=== PATIENT | male | born 1965 | race Caucasian/White ===

== ENCOUNTER 2017-08-17 17:00 | Inpatient (IN) ==
[2017-08-17] MEDS: SODIUM CHLORIDE 0.9% 1,000 ML IV SCH (20:14)
[2017-08-17] MEDS ORDERED: LACTULOSE 20 GM/30 ML UDCUP PO PRN (20:16)
[2017-08-17] MEDS ORDERED: diphenhydrAMINE CAP 25 MG CAPSULE PO PRN (20:16)
[2017-08-17] MEDS ORDERED: guaiFENesin 200 MG/10 ML UDCUP PO PRN (20:16)
[2017-08-17] MEDS ORDERED: MAGNESIUM HYDROXIDE SUSP 30 ML UDCUP PO PRN (20:16)
[2017-08-17] MEDS ORDERED: ONDANSETRON 4 MG/2 ML VIAL IV PRN (20:16)
[2017-08-17] MEDS ORDERED: ALPRAZolam 0.25 MG TABLET PO PRN (20:16)
[2017-08-17] MEDS ORDERED: chlorproMAZINE INJ 50 MG in SODIUM CHLORIDE 0.9% 100 ML IV PRN (20:16)
[2017-08-17] MEDS ORDERED: MYLANTA/LIDO VISC 2:1 300 ML BOTTLE SWISH/SWAL PRN (20:16)
[2017-08-17] MEDS ORDERED: chlorproMAZINE 25 MG TABLET PO PRN (20:16)
[2017-08-17] MEDS ORDERED: ALUMINUM/MAGNES/SIMETH MAX STR 30 ML UDCUP PO PRN (20:16)
[2017-08-17] MEDS ORDERED: TEMAZEPAM 7.5 MG CAPSULE PO PRN (20:16)
[2017-08-17] MEDS ORDERED: chlorproMAZINE INJ 25 MG in SODIUM CHLORIDE 0.9% 100 ML IV PRN (20:16)
[2017-08-17] MEDS ORDERED: ACETAMINOPHEN 325 MG TABLET PO PRN (20:16)
[2017-08-17] MEDS ORDERED: PROMETHAZINE INJ 25 MG in SODIUM CHLORIDE 0.9% 50 ML IV PRN (20:16)
[2017-08-17] MEDS ORDERED: BENZTROPINE 2 MG/2 ML AMP IV PRN (20:16)
[2017-08-17] MEDS ORDERED: LOPERAMIDE 2 MG CAPSULE PO PRN ×2 (20:16)
[2017-08-17 20:45] LABS: Basophils # 0.1 10*3/uL (0.0-0.2); Basophils % 1.3 % (0.0-0.8); Eosinophils # 0.1 10*3/uL (0.0-0.87); Hematocrit 36.8 VOL% (42.0-52.0); Hemoglobin 12.5 GM/DL (14.0-18.0); Immature Granulocytes % 0.4 %; Immature Granulocytes Absolute 0.03 #; Lymphocytes # 0.9 10*3/uL (1.4-4.0); Lymphocytes % 13.7 % (21.2-54.2); Mean Corpuscular Hemoglobin 30 PG (27-34); Mean Corpuscular Volume 89.1 FL (87-102); Mean Platelet Volume 9.8 FL (9.6-12.0); Monocytes # 0.9 10*3/uL (0.11-0.8); Monocytes % 12.7 % (1.7-12.7); Neutrophils # 4.8 10*3/uL (1.4-7.4); Neutrophils % 70.9 % (38.7-73.9); Platelet Count 198 T/CUMM (130-400); Red Blood Count 4.13 MC/CUMM (3.8-5.5); Red Cell Distribution Width 13.8 % (9.3-17.3); White Blood Count 6.8 T/CUMM (4-12)
[2017-08-17 21:14] LABS: Albumin 2.9 G/DL (3.4-5.0); Bilirubin,Total 0.8 MG/DL (0.2-1.0); Osmolality,Calculated 274.8 MOS/KG (273-304); Potassium 2.7 MMOL/L (3.5-5.1); Total Protein 7.5 G/DL (6.4-8.3); Uric Acid 5.8 MG/DL (3.5-7.2)
[2017-08-17 21:17] LABS: Calcium 14.9 MG/DL (8.5-10.1)
[2017-08-17] MEDS: MORPHINE 2 MG/1 ML SYRINGE IV PRN (21:56)
[2017-08-17] MEDS: CALCITONIN 400 UNIT/2 ML VIAL SUBCUT SCH (21:58)
[2017-08-18] MEDS: SODIUM CHLORIDE 0.9% 1,000 ML IV SCH ×6 (00:20→22:18)
[2017-08-18 02:56] LABS: Amorphous Crystals,Urine Occasional /HPF (Few); Apearance,Urine Slightly Hazy (Clear); Bacteria,Urine Few /HPF (Few); Bilirubin,Urine Negative (Negative); Blood, Urine Moderate mg/dL (Negative); Glucose,Urine (UA) Negative (Negative); Hyaline Casts,Urine 1 /LPF (0-3); Ketones,Urine Negative (Negative); Mucus,Urine Occasional /LPF (Occasional); Nitrite,Urine Negative (Negative); Protein,Urine Negative; RBC,Urine 9 /HPF (0-4); Urine Color Yellow (Yellow); Urine Specific Gravity 1.004 (1.001-1.035); WBC,Urine 26 /HPF (0-6)
[2017-08-18] MEDS ORDERED: ZOLEDRONIC ACID 4 MG in PREMIX 1 EACH IV ONE (04:00)
[2017-08-18 05:09] LABS: Basophils # 0.1 10*3/uL (0.0-0.2); Basophils % 1.3 % (0.0-0.8); Eosinophils # 0.1 10*3/uL (0.0-0.87); Hematocrit 40.5 VOL% (42.0-52.0); Immature Granulocytes % 0.2 %; Immature Granulocytes Absolute 0.01 #; Lymphocytes # 0.7 10*3/uL (1.4-4.0); Lymphocytes % 13.7 % (21.2-54.2); Mean Corpuscular HGB Conc 34.6 GM/DL (32-36); Mean Corpuscular Hemoglobin 31 PG (27-34); Mean Corpuscular Volume 88.2 FL (87-102); Monocytes # 0.5 10*3/uL (0.11-0.8); Monocytes % 9.9 % (1.7-12.7); Neutrophils # 3.9 10*3/uL (1.4-7.4); Neutrophils % 73.9 % (38.7-73.9); Platelet Count 212 T/CUMM (130-400); Red Blood Count 4.59 MC/CUMM (3.8-5.5); Red Cell Distribution Width 13.8 % (9.3-17.3); White Blood Count 5.3 T/CUMM (4-12)
[2017-08-18 05:36] LABS: Albumin 2.9 G/DL (3.4-5.0); Bilirubin,Total 0.8 MG/DL (0.2-1.0); Osmolality,Calculated 280.4 MOS/KG (273-304); Potassium 2.8 MMOL/L (3.5-5.1); Total Protein 7.5 G/DL (6.4-8.3)
[2017-08-18 05:44] LABS: Calcium 14.5 MG/DL (8.5-10.1)
[2017-08-18] MEDS: POTASSIUM CHLORIDE 20 MEQ TABLET PO PRN ×4 (05:54→15:31)
[2017-08-18] MEDS: MORPHINE 2 MG/1 ML SYRINGE IV PRN ×2 (07:53→11:16)
[2017-08-18] MEDS: CALCITONIN 400 UNIT/2 ML VIAL SUBCUT SCH ×2 (10:30→21:02)
[2017-08-18] MEDS: POTASSIUM CHLORIDE 20 MEQ/15 ML UDCUP PO SCH ×2 (13:59→20:55)
[2017-08-18] MEDS: HYDROcod/ACETAMIN 7.5-325 MG/15 ML UDCUP PO PRN (15:29)
[2017-08-18] MEDS ORDERED: FUROSEMIDE 20 MG/2 ML VIAL IV ONE (16:40)
[2017-08-18] MEDS: ZINC OXIDE PASTE 113 GM TUBE TOP SCH ×2 (17:49→21:02)
[2017-08-18] MEDS ORDERED: POTASSIUM CHLORIDE INJ 30 MEQ in SODIUM CHLORIDE 0.9% 285 ML IV ONE (23:30)
[2017-08-19] MEDS: cefTRIAXone 1,000 MG in SYRINGE 1 EACH IV SCH (02:08)
[2017-08-19 05:15] LABS: Basophils # 0.1 10*3/uL (0.0-0.2); Eosinophils # 0.1 10*3/uL (0.0-0.87); Eosinophils % 1.9 % (0.00-10.9); Hematocrit 33.9 VOL% (42.0-52.0); Hemoglobin 11.9 GM/DL (14.0-18.0); Immature Granulocytes % 0.3 %; Immature Granulocytes Absolute 0.02 #; Lymphocytes # 0.6 10*3/uL (1.4-4.0); Lymphocytes % 9.6 % (21.2-54.2); Mean Corpuscular HGB Conc 35.1 GM/DL (32-36); Mean Corpuscular Hemoglobin 31 PG (27-34); Mean Platelet Volume 10.1 FL (9.6-12.0); Monocytes # 0.5 10*3/uL (0.11-0.8); Monocytes % 8.2 % (1.7-12.7); Neutrophils # 4.5 10*3/uL (1.4-7.4); Platelet Count 164 T/CUMM (130-400); Red Blood Count 3.81 MC/CUMM (3.8-5.5); Red Cell Distribution Width 13.9 % (9.3-17.3); White Blood Count 5.7 T/CUMM (4-12)
[2017-08-19] MEDS: SODIUM CHLORIDE 0.9% 1,000 ML IV SCH ×5 (05:37→19:50)
[2017-08-19 05:50] LABS: Albumin 2.6 G/DL (3.4-5.0); Bilirubin,Total 0.9 MG/DL (0.2-1.0); Calcium 10.9 MG/DL (8.5-10.1); Potassium 3.1 MMOL/L (3.5-5.1); Total Protein 6.2 G/DL (6.4-8.3)
[2017-08-19 06:03] LABS: Prealbumin 6.4 MG/DL (20-40)
[2017-08-19 06:58] LABS: Osmolality,Calculated 278.4 MOS/KG (273-304); Potassium 3.1 MMOL/L (3.5-5.1)
[2017-08-19] MEDS: POTASSIUM CHLORIDE 20 MEQ/15 ML UDCUP PO SCH ×2 (08:45→20:48)
[2017-08-19] MEDS ORDERED: PNEUMOCOCCAL VACCINE (13 VALENT) 0.5 ML SYRINGE IM ONE (09:00)
[2017-08-19] MEDS ORDERED: INFLUENZA VIRUS VACCINE 0.5 ML SYRINGE IM ONE (09:00)
[2017-08-19] MEDS ORDERED: POTASSIUM PHOSPHATE 15 MMOL in SODIUM CHLORIDE 0.9% 100 ML IV ONE (09:00)
[2017-08-19] MEDS ORDERED: MAGNESIUM SULF RIDER 4 GM in PREMIX 1 EACH IV ONE (09:30)
[2017-08-19] MEDS: POTASSIUM CHLORIDE RIDER 10 MEQ in PREMIX 1 EACH IV SCH ×4 (09:34→12:43)
[2017-08-19] MEDS: MORPHINE 2 MG/1 ML SYRINGE IV PRN (09:35)
[2017-08-19] MEDS: ZINC OXIDE PASTE 113 GM TUBE TOP SCH ×2 (10:37→20:48)
[2017-08-19] MEDS: CALCITONIN 400 UNIT/2 ML VIAL SUBCUT SCH ×2 (11:05→21:47)
[2017-08-19] MEDS ORDERED: POTASSIUM PHOS/SOD PHOS POWDER 250 MG PACK PO ONE (11:23)
[2017-08-19] MEDS: MYLANTA/LIDO VISC 2:1 300 ML BOTTLE SWISH/SPIT PRN ×2 (12:22→17:42)
[2017-08-19] MEDS: KETOROLAC 30 MG/1 ML VIAL IV PRN (14:54)
[2017-08-20] MEDS: SODIUM CHLORIDE 0.9% 1,000 ML IV SCH ×4 (00:42→16:50)
[2017-08-20] MEDS: cefTRIAXone 1,000 MG in SYRINGE 1 EACH IV SCH (01:26)
[2017-08-20 05:28] LABS: Basophils # 0.1 10*3/uL (0.0-0.2); Eosinophils # 0.1 10*3/uL (0.0-0.87); Eosinophils % 1.4 % (0.00-10.9); Hematocrit 30.3 VOL% (42.0-52.0); Immature Granulocytes % 0.4 %; Immature Granulocytes Absolute 0.02 #; Lymphocytes # 0.7 10*3/uL (1.4-4.0); Lymphocytes % 12.5 % (21.2-54.2); Mean Corpuscular Hemoglobin 31 PG (27-34); Mean Corpuscular Volume 92.4 FL (87-102); Mean Platelet Volume 10.6 FL (9.6-12.0); Monocytes # 0.5 10*3/uL (0.11-0.8); Monocytes % 8.7 % (1.7-12.7); Neutrophils # 3.9 10*3/uL (1.4-7.4); Platelet Count 132 T/CUMM (130-400); Red Blood Count 3.28 MC/CUMM (3.8-5.5); White Blood Count 5.2 T/CUMM (4-12)
[2017-08-20 06:17] LABS: Albumin 2.4 G/DL (3.4-5.0); Bilirubin,Total 0.6 MG/DL (0.2-1.0); Calcium 8.9 MG/DL (8.5-10.1); Osmolality,Calculated 280.1 MOS/KG (273-304); Potassium 2.9 MMOL/L (3.5-5.1); Total Protein 5.8 G/DL (6.4-8.3)
[2017-08-20] MEDS ORDERED: POTASSIUM PHOSPHATE 30 MMOL in SODIUM CHLORIDE 0.9% 250 ML IV ONE (09:00)
[2017-08-20] MEDS: ZINC OXIDE PASTE 113 GM TUBE TOP SCH ×2 (11:21→20:56)
[2017-08-20] MEDS: POTASSIUM CHLORIDE 20 MEQ/15 ML UDCUP PO SCH ×2 (11:21→20:56)
[2017-08-20] MEDS: MAGNESIUM OXIDE 400 MG TABLET PO SCH (11:22)
[2017-08-20] MEDS: KETOROLAC 30 MG/1 ML VIAL IV PRN (20:51)
[2017-08-21] MEDS: METOCLOPRAMIDE 10 MG/2 ML VIAL IV SCH ×4 (00:31→17:40)
[2017-08-21] MEDS: SODIUM CHLORIDE 0.9% 1,000 ML IV SCH ×2 (02:48→15:19)
[2017-08-21] MEDS: KETOROLAC 30 MG/1 ML VIAL IV PRN ×2 (04:15→10:02)
[2017-08-21 05:46] LABS: Calcium 8.1 MG/DL (8.5-10.1); Osmolality,Calculated 278.4 MOS/KG (273-304); Potassium 3.4 MMOL/L (3.5-5.1)
[2017-08-21 05:50] LABS: Albumin 2.5 G/DL (3.4-5.0); Bilirubin,Total 1.2 MG/DL (0.2-1.0); Calcium 8.1 MG/DL (8.5-10.1); Osmolality,Calculated 278.4 MOS/KG (273-304); Potassium 3.5 MMOL/L (3.5-5.1)
[2017-08-21] MEDS ORDERED: POTASSIUM PHOSPHATE 15 MMOL in SODIUM CHLORIDE 0.9% 100 ML IV ONE (09:30)
[2017-08-21] MEDS: POTASSIUM CHLORIDE 20 MEQ/15 ML UDCUP PO SCH ×2 (10:03→20:26)
[2017-08-21] MEDS: MAGNESIUM OXIDE 400 MG TABLET PO SCH (10:03)
[2017-08-21] MEDS: ZINC OXIDE PASTE 113 GM TUBE TOP SCH ×2 (10:04→20:26)
[2017-08-21] MEDS: MORPHINE 4 MG/1 ML VIAL IV PRN ×2 (15:15→20:23)
[2017-08-22] MEDS: MORPHINE 4 MG/1 ML VIAL IV PRN ×4 (00:06→17:41)
[2017-08-22] MEDS: METOCLOPRAMIDE 10 MG/2 ML VIAL IV SCH ×4 (00:06→18:35)
[2017-08-22] MEDS: MYLANTA/LIDO VISC 2:1 300 ML BOTTLE SWISH/SPIT PRN (00:10)
[2017-08-22 03:19] LABS: Basophils # 0.1 10*3/uL (0.0-0.2); Basophils % 1.3 % (0.0-0.8); Eosinophils # 0.2 10*3/uL (0.0-0.87); Eosinophils % 3.8 % (0.00-10.9); Hematocrit 32.1 VOL% (42.0-52.0); Hemoglobin 10.6 GM/DL (14.0-18.0); Immature Granulocytes % 0.3 %; Immature Granulocytes Absolute 0.01 #; Lymphocytes # 0.8 10*3/uL (1.4-4.0); Lymphocytes % 18.8 % (21.2-54.2); Mean Corpuscular Hemoglobin 30 PG (27-34); Mean Corpuscular Volume 91.5 FL (87-102); Mean Platelet Volume 10.9 FL (9.6-12.0); Monocytes # 0.6 10*3/uL (0.11-0.8); Monocytes % 14.3 % (1.7-12.7); Neutrophils # 2.5 10*3/uL (1.4-7.4); Neutrophils % 61.5 % (38.7-73.9); Platelet Count 148 T/CUMM (130-400); Red Blood Count 3.51 MC/CUMM (3.8-5.5); Red Cell Distribution Width 14.1 % (9.3-17.3)
[2017-08-22 03:49] LABS: Albumin 2.3 G/DL (3.4-5.0); Bilirubin,Total 0.9 MG/DL (0.2-1.0); Calcium 7.6 MG/DL (8.5-10.1); Osmolality,Calculated 279.3 MOS/KG (273-304); Potassium 3.7 MMOL/L (3.5-5.1); Total Protein 5.6 G/DL (6.4-8.3)
[2017-08-22] MEDS: SODIUM CHLORIDE 0.9% 1,000 ML IV SCH (06:26)
[2017-08-22] MEDS: KETOROLAC 30 MG/1 ML VIAL IV PRN (08:57)
[2017-08-22] MEDS: MAGNESIUM OXIDE 400 MG TABLET PO SCH ×2 (08:58→20:54)
[2017-08-22] MEDS ORDERED: POTASSIUM PHOSPHATE 30 MMOL in SODIUM CHLORIDE 0.9% 250 ML IV ONE (09:00)
[2017-08-22] MEDS: ZINC OXIDE PASTE 113 GM TUBE TOP SCH ×2 (09:00→21:15)
[2017-08-22] MEDS ORDERED: CALCIUM GLUCONATE 2,000 MG in SODIUM CHLORIDE 0.9% 100 ML IV ONE (09:00)
[2017-08-22] MEDS: POTASSIUM CHLORIDE 20 MEQ/15 ML UDCUP PO SCH ×2 (09:01→20:54)
[2017-08-22] MEDS: HYDROcod/ACETAMIN 7.5-325 MG/15 ML UDCUP PO PRN (20:54)
[2017-08-23] MEDS: METOCLOPRAMIDE 10 MG/2 ML VIAL IV SCH ×3 (01:16→12:37)
[2017-08-23] MEDS: SODIUM CHLORIDE 0.9% 1,000 ML IV SCH ×2 (01:20→01:21)
[2017-08-23] MEDS: MORPHINE 4 MG/1 ML VIAL IV PRN ×4 (03:17→11:05)
[2017-08-23 05:36] LABS: Basophils % 0.9 % (0.0-0.8); Eosinophils # 0.2 10*3/uL (0.0-0.87); Eosinophils % 3.7 % (0.00-10.9); Hemoglobin 11.2 GM/DL (14.0-18.0); Immature Granulocytes % 0.4 %; Immature Granulocytes Absolute 0.02 #; Lymphocytes # 0.7 10*3/uL (1.4-4.0); Lymphocytes % 15.4 % (21.2-54.2); Mean Corpuscular Hemoglobin 30 PG (27-34); Mean Corpuscular Volume 94.3 FL (87-102); Mean Platelet Volume 11.1 FL (9.6-12.0); Monocytes # 0.6 10*3/uL (0.11-0.8); Monocytes % 12.3 % (1.7-12.7); Neutrophils # 3.1 10*3/uL (1.4-7.4); Neutrophils % 67.3 % (38.7-73.9); Platelet Count 127 T/CUMM (130-400); Red Blood Count 3.71 MC/CUMM (3.8-5.5); Red Cell Distribution Width 14.2 % (9.3-17.3); White Blood Count 4.5 T/CUMM (4-12)
[2017-08-23 05:58] LABS: Calcium 7.3 MG/DL (8.5-10.1); Potassium 4.4 MMOL/L (3.5-5.1); Prealbumin 5.2 MG/DL (20-40)
[2017-08-23 06:00] LABS: Albumin 2.3 G/DL (3.4-5.0); Bilirubin,Total 0.4 MG/DL (0.2-1.0); Calcium 7.4 MG/DL (8.5-10.1); Osmolality,Calculated 281.1 MOS/KG (273-304); Potassium 4.4 MMOL/L (3.5-5.1); Total Protein 5.8 G/DL (6.4-8.3)
[2017-08-23] MEDS ORDERED: POTASSIUM PHOSPHATE 30 MMOL in SODIUM CHLORIDE 0.9% 250 ML IV ONE (09:00)
[2017-08-23] MEDS ORDERED: CALCIUM CARBONATE CHEW 500 MG TABLET PO SCH (09:00)
[2017-08-23] MEDS: MAGNESIUM OXIDE 400 MG TABLET PO SCH (11:17)
[2017-08-23] MEDS: ZINC OXIDE PASTE 113 GM TUBE TOP SCH (11:18)
[2017-08-23] MEDS: POTASSIUM CHLORIDE 20 MEQ/15 ML UDCUP PO SCH (11:18)
[2017-08-23] MEDS: HYDROcod/ACETAMIN 7.5-325 MG/15 ML UDCUP PO PRN (13:03)
[2017-08-23 15:35] VITALS: BP 121/58
== END 2017-08-23 15:10 | disposition home or self-care (01) | DRG 640 ==
LOC: N.4E
PROVIDERS: ADMIT Internal Medicine Hematology & Oncology; ATTEND Internal Medicine Hematology & Oncology